=== PATIENT | female | born 1970 | race African-American/Black ===

== ENCOUNTER 2020-05-08 09:54 | Emergency (ER) | payer OTHER ==
[~2020-05-08] VITALS: Ht 157.5 cm; Wt 84.8 kg
[2020-05-08 10:14] LABS: URINE BILIRUBIN NEGATIVE (Negative); URINE BLOOD NEGATIVE (Negative); URINE CLARITY SL CLOUDY; URINE COLOR YELLOW; URINE GLUCOSE-RANDOM* NEGATIVE (Negative); URINE KETONES NEGATIVE (Negative); URINE LEUKOCYTES-REFLEX NEGATIVE (Negative); URINE NITRITE-REFLEX NEGATIVE (Negative); URINE PROTEIN (DIPSTICK) TRACE (Negative); URINE SPECIFIC GRAVITY 1.015 (1.005-1.035)
[2020-05-08 10:17] LABS: SSA (PROTEIN CONFIRMATORY) TRACE (APPROX. 5) mg/dL (Negative)
[2020-05-08 10:34] LABS: ABSOLUTE NEUTROPHILS 8.8 thou/uL (1.4-8.2); BASOPHILS 0.6 % (0.0-2.0); EOSINOPHILS 0.1 % (0.0-3.0); HEMOGLOBIN 13.5 gm/dL (12.0-15.0); MCH 29.1 pg (26.0-34.0); MCHC 33.7 g/dL (28.0-37.0); MCV 86.2 fL (80.0-100.0); MONOCYTES 5.7 % (1.0-8.0); PLATELET COUNT 382 thou/uL (150-400); POLYS 81.6 % (36.0-66.0); RBC 4.64 mil/uL (4.20-5.00); RDW 15.5 % (10.5-14.5); WBC 10.8 thou/uL (4.0-11.0)
[2020-05-08 10:42] LABS: CREATININE 0.9 mg/dL (0.6-1.0); POTASSIUM 3.3 mmol/L (3.5-5.1)
[2020-05-08 10:49] LABS: ALBUMIN 3.5 g/dL (3.4-5.0); TOTAL BILIRUBIN 0.7 mg/dL (0.2-1.0); TOTAL PROTEIN 7.6 g/dL (6.4-8.2)
[2020-05-08] MEDS ORDERED: IBUPROFEN 600600 M1 PO (13:55)
[2020-05-08] MEDS ORDERED: SENNA-DOCUSATE1 EAC1 PO (13:55)
[2020-05-08] MEDS ORDERED: FLAGYL500 M1 PO (13:55)
[2020-05-08] MEDS ORDERED: NORCO 5-325 TA1 EAC1 PO (13:55)
[2020-05-08] MEDS ORDERED: ZOFRAN ODT4 MG PO (13:55)
[2020-05-08] MEDS ORDERED: CIPROFLOXACIN500 M1 PO (13:55)
[2020-05-08] MEDS ORDERED: PHENERGAN 25 MG25 M1 PO (13:55)
[2020-05-08 14:42] VITALS: BP 150/79
== END 2020-05-08 14:43 | disposition home or self-care (01) ==
LOC: ER 09:54
PROVIDERS: Emergency Medicine
DX: K57.92 Diverticulitis of intestine, part unspecified, without perforation or abscess without bleeding (principal); F12.10 Cannabis abuse, uncomplicated; R19.7 Diarrhea, unspecified; Z98.51 Tubal ligation status